=== PATIENT | male | born 1960 | race Caucasian/White ===

== ENCOUNTER 2019-05-26 13:10 | Emergency (ER) | payer OTHER ==
[~2019-05-26] VITALS: Ht 177.8 cm; Wt 93.9 kg
--- NOTE | 2019-05-26 13:14 | NUR ---
PER REPORT FORM EMS, PT HAS BEEN USING METH AND ETOH FOR THE LAST COUPLE DAYS. PT DENIED HI/SI TO EMS. MAUREEN.
--- NOTE | 2019-05-26 13:52 | NUR ---
TASK RN: FIRST CONTACT WITH PT. Pt reports last drink "last night" and drinking "equivalent of a 6 pack a day for past month and use of "opiates, pain pills, and some crystal" last night. Pt sitting on gurney with arms crossed. Pt states, "I am here for stupidity." Pt denies seizures with alcohol withdrawal.
[2019-05-26] MEDS ORDERED: LORazepam 1MG TABLET ONE (14:26)
[2019-05-26] MEDS ORDERED: LORazepam 1MG TABLET PO ONE (14:30)
--- NOTE | 2019-05-26 14:35 | NUR ---
pt a&ox4, resps even and unlabored, all monitors applied. sinus tach rate 100-110 on awake overnight monitor with no ectopy. pt denies pain. no tremors noted. pt denies si/hi. pt denies hx SA. pt instructed to provide urine sample when able, supplies provided at bedside.
--- NOTE | 2019-05-26 14:45 | NUR ---
PSYC DESK OPERATOR AT BEDSIDE FOR ASSESSMENT.
[2019-05-26 15:03] LABS: BASOPHILS # (AUTO) 0.06 x10^3/uL (0-0.1); BASOPHILS % (AUTO) 1 % (0-1); EOSINOPHILS # (AUTO) 0.01 x10^3/uL (0-0.4); EOSINOPHILS % (AUTO) 0 % (1-7); LYMPHOCYTES % (AUTO) 16 % (22-44); MD NO; MEAN CORPUSCULAR HEMOGLOBIN 33.1 pg (27.5-34.5); MEAN CORPUSCULAR HGB CONC 32.9 g/dL (33.2-36.2); MEAN CORPUSCULAR VOLUME 100.6 fL (81-97); MEAN PLATELET VOLUME 8.4 fL (7.4-10.4); MONOCYTES % (AUTO) 11 % (2-9); NEUTROPHILS # (AUTO) 7.56 x10^3/uL (1.8-6.8); NEUTROPHILS % (AUTO) 73 % (42-75); PLATELET COUNT 156 x10^3/uL (130-400); RED CELL DISTRIBUTION WIDTH 13.9 % (9.4-14.8)
[2019-05-26 15:21] LABS: ALBUMIN 4.4 g/dL (3.4-5.0); ANION GAP 10 mmol/L (5-15); CALCIUM 9.9 mg/dL (8.5-10.1); CHLORIDE 109 mmol/L (98-107)
[2019-05-26 15:23] LABS: CREATININE 1.02 mg/dL (0.7-1.3)
[2019-05-26 15:24] LABS: SALICYLATE LEVEL < 1.7 mg/dL (2.8-20.0)
--- NOTE | 2019-05-26 15:37 | NUR ---
REPORT GIVEN TO RN'S SHARON AND CARMEN AT BEDSIDE. PT A&OX4. RESPS EVEN AND UNLABORED. NADN. NSR ON CASH APPLICATIONS ASSOCIATE. MD THRASHER AWARE OF BP 180/118, PT TO HAVE CATAPRES. PT STILL HAS NOT PROVIDED URINE SAMPLE, PT REMINDED TO PROVIDE WHEN ABLE. SUPPLIES AT BEDSIDE.
--- NOTE | 2019-05-26 15:46 | NUR ---
REPORT RECEIVED FROM TAISHA AVENDANO. ASSUMED PT CARE
[2019-05-26 16:11] LABS: TROPONIN I 0.442 ng/mL (0.000-0.045)
[2019-05-26] MEDS ORDERED: ASPIRIN 325 MG TABLET PO ONE (16:12)
[2019-05-26] MEDS ORDERED: ASPIRIN 325 MG TABLET ONE (16:14)
[2019-05-26 16:29] LABS: AMPHETAMINE SCREEN, URINE Positive (Negative); BARBITURATE SCREEN, URINE Negative (Negative); BENZODIAZEPINE SCREEN, URINE Negative (Negative); CANNABINOID SCREEN, URINE Negative (Negative); COCAINE SCREEN, URINE Negative (Negative); METHADONE SCREEN, URINE Negative (Negative); OPIATE SCREEN, URINE Negative (Negative)
--- NOTE | 2019-05-26 17:20 | NUR ---
DR. DOLL AT BEDSIDE TO ADMIT PT. PT IS REQUESTING TO LEAVE DESPITE DR. DOLL INFORMING HIM OF THE RISKS.
[2019-05-26 17:55] VITALS: BP 151/107
== END 2019-05-26 17:58 | disposition left against medical advice (07) ==
LOC: EDBD 13:10 → ED 17:14 → EDIP 17:24 → UNDOADMIN 17:24 → ED 17:58
DX: F10.10 Alcohol abuse, uncomplicated (principal); I10 Essential (primary) hypertension; F15.10 Other stimulant abuse, uncomplicated
CPT/HCPCS: 36415; 80048; 80307; 82040; 84484; 85025; 93005; 99284